=== PATIENT | female | born 1980 | race Caucasian/White ===

== ENCOUNTER 2018-06-14 10:12 | Emergency (ER) | payer OTHER ==
[2018-06-14 10:20] VITALS: BP 118/55; PULSE 80; TEMP 98; BMI 21.4
--- NOTE | 2018-06-14 12:02 | PDOC ---
History of Present Illness - General Chief Complaint: Vaginal Bleeding Stated Complaint: STOMACH PAIN Time Seen by Provider: 06/14/18 11:59 History Source: Patient Exam Limitations: Language Barrier (Kymeta interpretor utilized: [id number] ) - History of Present Illness Initial Comments: 06/14/18 12:01 38 yr old yi speaking woman A0 LMP 04/13/2018 presents with vaginal bleeding consisting of dark blood since 06/10 which has progressively increased with passage of clots and large tissue on Thursday a/w nausea, headache , lower back and suprapubic pain that felt like contractions. On May 03 she was injected in her gluteus with a contraceptive medication that is supposed to last 3months by her sister who is a nurse. the medication was sent through the mail without any temperature protection from [facility]. the bleeding decreased after passage of the tissue/clot but the pain in the subrapubic region and lower back has been pulsatile and not completely resolved after taking 2 tylenol last night. this is first time she has used any contraception. did not take a test prior to the injection or after. denies hx of miscarriages, chest pain, trouble breathing, LE edema. denies hx of bleeding disorders Menarche: age 14, menstrual cycle has always been irregular Surghx: had 3 c-sections, children aged: 16, 12 and 5. received c-sxn due to failure of the cervix to dilate. Allergies: none pmhx: none sochx: denies smoking, etoh and drug use Past History - Travel Traveled outside of the country in the last 30 days: No Close contact w/someone who was outside of country & ill: No - Past Medical History Allergies/Adverse Reactions: Allergies Allergy/AdvReac Type Severity Reaction Status Date / Time No Known Allergies Allergy Verified 06/14/18 10:20 Home Medications: Ambulatory Orders NK [No Known Home Medication] 06/14/18 COPD: No Diabetes: No HTN: No - Surgical History Cholecystectomy: No Lung Surgery: No Other Surgical History: 06/14/18 12:58 C-sections - Immunization History Immunization Up to Date: No - Suicide/Smoking/Psychosocial Hx Smoking History: Never smoked Have you smoked in the past 12 months: No Information on smoking cessation initiated: No Hx Alcohol Use: No Drug/Substance Use Hx: No Review of Systems - Review of Systems Constitutional: No: Fever, Loss of Appetite, Unexplained wgt Loss HEENTM: No: Blurred Vision, Nose Bleeding, Difficulty Swallowing Respiratory: No: Cough, Shortness of Breath, Hemoptysis Cardiac (ROS): No: Chest Pain, Edema, Palpitations, Syncope, Chest Tightness ABD/GI: Yes: Nausea, Abdominal cramping. No: Abdominal Distended, Blood Streaked Bowels, Constipated, Diarrhea, Vomiting : No: Burning, Dysuria, Discharge, Flank Pain, Hematuria Musculoskeletal: Yes: Back Pain. No: Neck Pain Integumentary: No: Erythema, Lesions, Lumps Neurological: Yes: Headache. No: Paresthesia, Tingling Hematologic/Lymphatic: No: Easy Bleeding, Easy Bruising, Bleeding Diathesis *Physical Exam - Vital Signs Last Vital Signs Temp Pulse Resp BP Pulse Ox 98.0 F 80 18 118/55 L 99 06/14/18 10:18 06/14/18 10:18 06/14/18 10:18 06/14/18 10:18 06/14/18 10:18 - Physical Exam General Appearance: Yes: Appropriately Dressed HEENT: positive: EOMI, BENJAMIN, Pharynx Normal, Hearing Grossly Normal. negative: Pale Conjunctivae, Scleral Icterus (R), Scleral Icterus (L) Neck: positive: Trachea midline, Normal Thyroid, Supple Respiratory/Chest: positive: Lungs Clear, Normal Breath Sounds. negative: Rales , Rhonchi, Wheezing Cardiovascular: positive: Regular Rhythm, Regular Rate, S1, S2. negative: Murmur, Tachycardia Gastrointestinal/Abdominal: positive: Normal Bowel Sounds, Flat, Tenderness ( diffuse tenderness, prominent in suprapubic area) Musculoskeletal: negative: CVA Tenderness Extremity: negative: Tender, Pedal Edema, Swelling, Calf Tenderness, Erythema Integumentary: positive: Dry, Warm. negative: Erythema, Mottled, Hives, Petechiae, Rash Neurologic: positive: Fully Oriented, Alert, Normal Mood/Affect Moderate Sedation - Procedure Monitoring Vital Signs: Procedure Monitoring Vital Signs Temperature 98.0 F 06/14/18 10:18 Pulse Rate 80 06/14/18 10:18 Respiratory Rate 18 06/14/18 10:18 Blood Pressure 118/55 L 06/14/18 10:18 O2 Sat by Pulse Oximetry (%) 99 06/14/18 10:18 ED Treatment Course - LABORATORY CBC & Chemistry Diagram: 06/14/18 12:46 06/14/18 12:46 Medical Decision Making - Medical Decision Making 06/14/18 13:01 38F with irregular periods having unprotected sex presents with vaginal bleeding since . may have taken injectable contraceptive sent through the mail from [facility]. will need to determine and r/o ectopic , would be GS age of 8wk 6days by LMP beta hcg, basic labs, type and screen check ultrasound if betahcg serum and ultrasound neg, likely menorrhagia. will provide [facility] as pt does not have a PCP or directional bore operator 06/14/18 13:36 Labs without anemia or electrolyte abnormalities, beta hcg is negative. check ultrasound for any sonographic abnormalities contributing to vaginal bleeding. will likely be able to have pt f/u as outpatient with PCP and directional bore operator if sono is without acute pathology. 06/14/18 14:52 all blood work wnl, pendng u/a and ultrasound. [facility] in [place]. 06/14/18 16:36 reviewed results of sono and labs. pt feels comfortable follow-up as outpatient , answered all her questions to her satisfaction. *DC/Admit/Observation/Transfer Diagnosis at time of Disposition: Vaginal bleeding - Discharge Dispostion Disposition: HOME Condition at time of disposition: Stable Decision to Admit order: No - Referrals Referrals: [facility] [place] [facility] [Provider Group] Jennifer Sutton MD [Staff Physician] - - Patient Instructions Printed Discharge Instructions: Contraception: What Are Your Options? Additional Instructions: You were evaluated for vaginal bleeding. Please follow-up with a primary care doctor and personal lines account executive within one week for post-hospital follow-up, you may need to repeat your ultrasound for further evaluation. Contact information for the [facility] and dr. Flores have been provided to you, please call to make an appointment. Contact information for [facility] in [place] are also provided. Print Language: SPA - Post Discharge Activity
[2018-06-14 12:56] LABS: BASO % 0.4 % (0-2.0); EOS % 0.9 % (0-4.5); LYMPH % 28.8 % (8-40); MCH 25.8 pg (25.7-33.7); MCHC 33.3 g/dl (32.0-36.0); MEAN CELL VOLUME 77.7 fl (80-96); MEAN PLT VOLUME 8.1 fl (7.5-11.1); MONO % 10.4 % (3.8-10.2); NEUT % 59.5 % (42.8-82.8); PLATELET COUNT 233 K/MM3 (134-434); RBC 4.64 M/mm3 (3.60-5.2); RDW 15.8 % (11.6-15.6); WHITE BLOOD COUNT 5.6 K/mm3 (4.0-10.0)
[2018-06-14 13:27] LABS: ALBUMIN 3.7 g/dl (3.4-5.0); ALK PHOS 75 U/L (45-117); ANION GAP 7 MMOL/L (8-16); BILIRUBIN,TOTAL 0.5 mg/dL (0.2-1); BLOOD UREA NITROGEN 14 mg/dL (7-18); CALCIUM 8.8 mg/dL (8.5-10.1); CHLORIDE 109 mmol/L (98-107); CO2 25 mmol/L (21-32); CREATININE 0.6 mg/dL (0.55-1.3); GLUCOSE,RANDOM 97 mg/dL (74-106); POTASSIUM 4.1 mmol/L (3.5-5.1); SGOT/AST 11 U/L (15-37); SGPT/ALT 17 U/L (13-61); SODIUM 141 mmol/L (136-145); TOT PROT 7.3 g/dl (6.4-8.2)
[2018-06-14 14:54] LABS: URINE APPEARANCE CLEAR; URINE BILIRUBIN NEGATIVE (<2.0 mg/dL); URINE COLOR LTYELLOW; URINE GLUCOSE (UA) NEGATIVE (NEGATIVE); URINE KETONE NEGATIVE (NEGATIVE); URINE LEUK ESTERASE NEGATIVE (NEGATIVE); URINE NITRITE NEGATIVE (NEGATIVE); URINE PROTEIN NEGATIVE (NEGATIVE); URINE UROBILINOGEN NEGATIVE mg/dL (0.2-1.0)
[2018-06-14 14:59] LABS: EPI CELLS RARE /HPF (FEW); URINE MUCUS RARE
--- NOTE | 2018-06-14 16:20 | PDOC ---
Attending Attestation - HPI HPI: 06/14/18 16:21 The patient is a 38 year old female with a past medical history of A0 here today for evaluation of vaginal bleeding. The patient reports that her bleeding started on 06/10/18 and has continued since then with passage of clots and large tissue. She reports associated suprapubic pain, lower quadrant abdominal pain, headache, nausea, and lower back pain. Patient denies lightheadedness. Denies fever, chills. Denies chest pain, shortness of breath. Denies vomiting, diarrhea. LMP: 04/13/18 Allergies: NKA - Physicial Exam PE: 06/14/18 16:29 Vitals: Triage vital signs reviewed General Appearance: No acute distress, well nourished, well developed Head: Atraumatic Chest Wall: Nontender Cardiac: Regular rate and rhythm, no murmurs, no rubs, no gallops Lungs: Clear to auscultation bilateral, good air movement bilaterally Abdomen: Soft, nondistended, normal bowel sounds, nontender to palpation Extremities: Full range of motion to all extremities, no cyanosis, clubbing, or edema Skin: Warm and dry, no rashes or lesions, no rash, no petechiae Neuro: AOX3; Cranial Nerves 2-12 grossly intact, Strength intact to all extremities, Sensation intact to all extremities Psych: Normal mood, normal affect - Medical Decision Making 06/14/18 16:21 Documentation prepared by LYNDON Farrar, acting as phlebotomist medical lab assistant for Tomasz Ambriz MD. The patient is a 38 year old female with a past medical history of A0 here today for evaluation of vaginal bleeding. <Jn Vidal - Moreno Filed: 06/14/18 16:29> - Resident Resident Name: Olya Goel - ED Attending Attestation I have performed the following: I have examined & evaluated the patient, The case was reviewed & discussed with the resident, I agree w/resident's findings & plan, Exceptions are as noted - Medical Decision Making Patient presented passage of a large clot differential diagnosis includes miscarriage ectopic versus irregular menses Laboratory analysis patient not ultrasound demonstrates no acute abnormalities Most likely irregular menses Patient will follow up this week with LEGAL RESEARCH ANALYST and [facility] Findings, the need for follow-up and strict return instructions discussed with patient. <Tomasz Ambriz - Last Filed: 06/14/18 16:56>
== END 2018-06-14 16:42 | disposition home or self-care (01) ==
LOC: JER 10:12
DX: N92.1 Excessive and frequent menstruation with irregular cycle (principal)
CPT/HCPCS: 36415; 76830-TC; 80053; 81003; 81015; 84702; 85025; 86850; 86900; 86901; 87086; 99281-25

== ENCOUNTER 2019-05-15 17:16 | Emergency (ER) | payer OTHER ==
[2019-05-15 17:46] VITALS: BP 125/74; PULSE 78; TEMP 98.4; BMI 22.3
[2019-05-15] MEDS ORDERED: ALBUTEROL SO4 2.5/IPRATROPIUM 0.5 INH SOL 3 ML VIAL.NEB. NEB ONE (17:56)
[2019-05-15] MEDS ORDERED: guaiFENesin/CODEINE 10 ML UNIT-DOSE CUPS PO ONE (17:57)
[2019-05-15] MEDS ORDERED: ACETAMINOPHEN 325 MG TABLET (FP) PO ONE (18:04)
[2019-05-15] MEDS ORDERED: guaiFENesin/CODEINE 5 ML UNIT-DOSE CUPS PO ONE (18:19)
[2019-05-15] MEDS ORDERED: ACETAMINOPHEN 325 MG TABLET (FP) ONE (18:19)
--- NOTE | 2019-05-15 19:27 | PDOC ---
History of Present Illness - General Chief Complaint: Respiratory Stated Complaint: FLU SYX Time Seen by Provider: 05/15/19 17:54 History Source: Patient Exam Limitations: No Limitations Past History - Travel Traveled outside of the country in the last 30 days: No Close contact w/someone who was outside of country & ill: No - Past Medical History Allergies/Adverse Reactions: Allergies Allergy/AdvReac Type Severity Reaction Status Date / Time No Known Allergies Allergy Verified 05/15/19 17:46 Home Medications: Ambulatory Orders Acetaminophen [Tylenol] 650 mg PO QID PRN 05/15/19 Albuterol Sulfate Inhaler - [Ventolin HFA Inhaler -] 1 - 2 inh PO Q4H #1 inhaler 05/15/19 Guaifenesin AC [Robitussin AC] 10 ml PO Q8H #100 ml MDD 3 05/15/19 Ibuprofen 600 mg PO Q6H #30 tablet 05/15/19 COPD: No Diabetes: No HTN: No - Surgical History Cholecystectomy: No Lung Surgery: No - Immunization History Immunization Up to Date: No - Psycho Social/Smoking Cessation Hx Smoking History: Never smoked Have you smoked in the past 12 months: No Hx Alcohol Use: No Drug/Substance Use Hx: No Review of Systems - Review of Systems Able to Perform ROS?: Yes Comments:: 05/15/19 19:16 CONSTITUTIONAL: Present: Fever, chills, body aches Absent: diaphoresis, generalized weakness, malaise, loss of appetite HEENT: Present: rhinorrhea, nasal congestion, throat pain. Absent: difficulty swallowing, mouth swelling, ear pain, eye pain, visual Changes CARDIOVASCULAR: Absent: chest pain, loss of consciousness, palpitations, irregular heart rate, peripheral edema RESPIRATORY: Present: Cough Absent: shortness of breath, dyspnea with exertion, orthopnea, wheezing, stridor, hemoptysis GASTROINTESTINAL: Absent: abdominal pain, abdominal distension, nausea, vomiting, diarrhea, constipation, melena, hematochezia SKIN: Absent: rash, itching, pallor NEUROLOGIC: Present: headache Absent: focal weakness or paresthesias, dizziness, unsteady gait, seizure, mental status changes, bladder or bowel incontinence Is the patient limited Niuean proficient: No *Physical Exam - Vital Signs Last Vital Signs Temp Pulse Resp BP Pulse Ox 98.4 F 78 22 H 125/74 97 05/15/19 17:38 05/15/19 17:38 05/15/19 17:38 05/15/19 17:38 05/15/19 17:38 - Physical Exam 05/15/19 19:16 GENERAL: Well developed, well nourished. Awake and alert. No acute distress. HEENT: Normocephalic, atraumatic. PERRLA, EOMI. No conjunctival pallor. Sclera are non- icteric. Moist mucous membranes. Oropharynx is clear. NECK: Supple. Full ROM. No lymphadenopathy. CARDIOVASCULAR: Regular rate and rhythm. No murmurs, rubs, or gallops. Distal pulses are 2+ and symmetric. PULMONARY: No evidence of respiratory distress. Lungs clear to auscultation bilaterally. No wheezing, rales or rhonchi. ABDOMINAL: Soft. Non-tender. Non-distended. No rebound or guarding. No organomegaly. Normoactive bowel sounds. MUSCULOSKELETAL Normal range of motion at all joints. No bony deformities or tenderness. No CVA tenderness. EXTREMITIES: No cyanosis. No clubbing. No edema. No calf tenderness. SKIN: Warm and dry. Normal capillary refill. No rashes. No jaundice. NEUROLOGICAL: Alert, awake, appropriate. Cranial nerves 2-12 intact. No deficits to light touch and temperature in face, upper extremities and lower extremities. No motor deficits in the in face, upper extremities and lower extremities. Normoreflexic in the upper and lower extremities. Normal speech. Toes are down- going bilaterally. Gait is normal without ataxia. PSYCHIATRIC: Cooperative. Good eye contact. Appropriate mood and affect. ED Treatment Course - RADIOLOGY Radiology Studies Ordered: Category Date Time Status CHEST PA & LAT [RAD] Stat Radiology 05/15/19 17:57 Taken - Medications Given in the ED: ED Medications Discontinued Medications Generic Name Dose Route Start Last Admin Trade Name Freq PRN Reason Stop Dose Admin Acetaminophen 975 mg 05/15/19 18:04 05/15/19 18:20 Tylenol - PO 05/15/19 18:05 975 mg ONCE ONE Administration Albuterol/Ipratropium 1 amp 05/15/19 17:56 05/15/19 18:12 Duoneb - NEB 05/15/19 17:57 1 amp ONCE ONE Administration Guaifenesin/Codeine Phosphate 10 ml 05/15/19 17:57 05/15/19 18:22 Robitussin Ac - PO 05/15/19 17:58 10 ml ONCE ONE Administration Medical Decision Making - Medical Decision Making 05/15/19 19:20 Patient is 38-year-old female with no past medical history who presents to the ER today with cough, shortness of breath, fevers and headaches. She was seen by her doctor on and told she had the flu without testing and sent home with azithromycin. She was not placed on Tamiflu at that time. Today she states that the cough is been severe and she cannot catch her breath. She notes she has lots of mucus. Denies lightheadedness, dizziness, chest pain, nausea, vomiting or diarrhea. A/P: Upper respiratory infection On exam lungs are clear to auscultation bilateral without wheezes rales or rhonchi. Wet cough noted on exam. Patient on antibiotics Chest x-ray is negative for pneumonia. Rapid flu and strep are negative Likely an upper respiratory infection. Recommend supportive treatment. Discharge home with patient to follow-up with her primary care doctor I discussed the physical exam findings, ancillary test results and final diagnoses with the patient. I answered all of the patient's questions. The patient was satisfied with the care received and felt comfortable with the discharge plan and treatment plan. The Patient agrees to follow up with the primary care physician/specialist within 24-72 hours. Return precautions were given. Discharge - Discharge Information Problems reviewed: Yes Clinical Impression/Diagnosis: Upper respiratory disease Condition: Stable Disposition: HOME - Admission No - Follow up/Referral - Patient Discharge Instructions Patient Printed Discharge Instructions: DI for Viral Upper Respiratory Infection -- Adult Additional Instructions: You have an upper respiratory infection, or the common cold. Your strep and flu testing was negative today. Please take Motrin 800 mg every 8 hours as needed for pain not to exceed 3000 mg a day. Drink plenty of fluids. Cough drops and warm tea may help your symptoms as well. Please follow up with her primary care doctor this week. Return to the emergency department if you have difficulty breathing, shortness of breath, worsening pain, nausea, vomiting or if you have any changes in your symptoms. Tiene marbin infeccin de las vas respiratorias superiores o resfriado comn. [place] prueba de estreptococos y gripe fue negativa hoy. [place] Motrin 800 mg cada 8 horas segn sea necesario para que el dolor no exceda los 3000 mg al da. Beber mucho lquido. Las pastillas para la tos y el t caliente tambin pueden ayudar con miguel sntomas. Ena un seguimiento con [place]inas mdico de atencin primaria esta semana. Regrese al departamento de emergencias si tiene dificultad para respirar, falta de aire, empeoramiento del dolor, nuseas, vmitos o si tiene algn cambio en miguel sntomas. Print Language: UKRAINIAN - Post Discharge Activity Work/Back to School Note: Back to Work
== END 2019-05-15 19:35 | disposition home or self-care (01) ==
LOC: JER 17:16 → JERFT 17:16
PROC: 3E0F7GC Introduction of Other Therapeutic Substance into Respiratory Tract, Via Natural or Artificial Opening (ICD-10-PCS; principal; 2019-05-15)
DX: J06.9 Acute upper respiratory infection, unspecified (principal); B97.89 Other viral agents as the cause of diseases classified elsewhere
CPT/HCPCS: 71046-TC-FY; 87070; 87804; 87880; 94640; 99281-25